=== PATIENT | female | born 1975 | race Caucasian/White ===

== ENCOUNTER → 2017-10-31 | Outpatient (CLI) | payer OTHER ==
[~2017-10-31] MED LIST: CARB-136 EACH EAR
== END | disposition home or self-care (01) ==
LOC: CFH 11:28
PROVIDERS: ATTEND Family Medicine
DX: M15.9 Polyosteoarthritis, unspecified (principal)

== ENCOUNTER → 2019-12-18 | Outpatient (CLI) | payer OTHER ==
[~2019-12-18] MED LIST changes: +DICL75TA3 PO; +FLUO20DR3 EACHEYE; +GABA100C PO; +HYDR473S47 PO
[2019-12-18 09:59] LABS: BASOPHILS % (AUTO) 1 % (0-1); EOSINOPHILS % (AUTO) 3 % (1-7); LYMPHOCYTES % (AUTO) 28 % (22-44); MEAN CORPUSCULAR HEMOGLOBIN 30.7 pg (27.0-34.8); MEAN CORPUSCULAR HGB CONC 33.2 g/dL (32.4-35.8); MEAN PLATELET VOLUME 8.7 fL (7.4-10.4); MONOCYTES % (AUTO) 10 % (2-9); NEUTROPHILS % (AUTO) 58 % (42-75); PLATELET COUNT 300 x10^3/uL (130-400); RED BLOOD COUNT 5.12 x10^6/uL (3.82-5.3); RED CELL DISTRIBUTION WIDTH 13.2 % (9.6-15.2)
[2019-12-18 10:02] LABS: ALBUMIN 4.1 g/dL (3.4-5.0); ANION GAP 4 mmol/L (5-15); CALCIUM 9.9 mg/dL (8.5-10.1); CHLORIDE 106 mmol/L (98-107)
[2019-12-18 10:05] LABS: MD NO
[2019-12-18 10:30] LABS: % IRON SATURATION 26 % (20-55); ALANINE AMINOTRANSFERASE 29 U/L (12-78); ALKALINE PHOSPHATASE 86 U/L (45-117); BILIRUBIN,TOTAL 0.6 mg/dL (0.2-1.0); CHOL/HDL RATIO 3.9; CHOLESTEROL, TOTAL 204 mg/dL (140-239); CREATININE 0.92 mg/dL (0.55-1.02); HDL CHOL % 25 % (28-40); HDL CHOLESTEROL (DIRECT) 52 mg/dL (40-60); IRON LEVEL 77 mcg/dL (50-170); LDL CHOLESTEROL,CALCULATED 132 mg/dL (54-169); LDL/HDL RATIO 2.5 (0.5-3.0); PREALBUMIN 28.8 mg/dL (20.0-40.0); TOTAL IRON BINDING CAPACITY 294 mcg/dL (250-450); TRANSFERRIN 225 mg/dL (200-360); TRIGLYCERIDES 98 mg/dL (50-200); VLDL CHOLESTEROL 20 mg/dL (0-25)
== END | disposition home or self-care (01) ==
LOC: STAR 08:26
PROVIDERS: ATTEND Thoracic Surgery (Cardiothoracic Vascular Surgery)
DX: Z01.812 Encounter for preprocedural laboratory examination (principal); Z20.828 Contact with and (suspected) exposure to other viral communicable diseases; R91.8 Other nonspecific abnormal finding of lung field; J84.10 Pulmonary fibrosis, unspecified; R94.31 Abnormal electrocardiogram [ECG] [EKG]
CPT/HCPCS: 36415; 71046; 80053; 80061; 82306; 82607; 82728; 82746; 83540; 83550; 83970; 84134; 84425; 84466; 85025; 87635; 93005

== ENCOUNTER 2019-12-23 12:24 | Inpatient (IN) | payer OTHER ==
[~2019-12-23] VITALS: Ht 160 cm; Wt 115.6 kg
[~2019-12-23 12:24] MED LIST changes: -HYDR473S47 PO
[2019-12-23] MEDS ORDERED: MIDAZOLAM 1 MG/ML, 2ML ONE (12:33)
[2019-12-23] MEDS ORDERED: FENTANYL PF 250 MCG/5ML ONE (12:33)
[2019-12-23] MEDS ORDERED: ONDANSETRON 2MG/ML, 2ML ONE (12:37)
[2019-12-23] MEDS ORDERED: ROCURONIUM 10MG/ML,5ML ONE (12:37)
[2019-12-23] MEDS ORDERED: PROPOFOL 10 MG/ML, 20ML ONE (12:37)
[2019-12-23] MEDS ORDERED: DEXAMETHASONE 4 MG/ML, 1ML ONE (12:37)
[2019-12-23] MEDS ORDERED: GLYCOPYRROLATE 0.2MG/1ML, 5ML ONE (12:37)
[2019-12-23] MEDS ORDERED: NEOSTIGMINE 1 MG/ML, 10ML ONE (12:37)
[2019-12-23] MEDS ORDERED: CEFAZOLIN 1,000 MG ONE (12:37)
[2019-12-23] MEDS ORDERED: EPINEPHRINE 1 MG/ML, 1ML ONE (12:54)
[2019-12-23] MEDS ORDERED: BUPIVACAINE/PF 0.5% ONE (12:54)
[2019-12-23] MEDS ORDERED: CHLORHEXIDINE 15 ML UDC MM ONE (13:03)
[2019-12-23] MEDS ORDERED: LACTATED RINGERS 1,000 ML IV ONE (13:03)
[2019-12-23] MEDS ORDERED: CHLORHEXIDINE 15 ML UDC ONE (13:05)
[2019-12-23] MEDS ORDERED: SCOPOLAMINE 1MG PATCH TD ONE ×2 (13:13→13:30)
[2019-12-23] MEDS ORDERED: PROMETHAZINE 25 MG/ML, 1ML IVPush PRN (13:30)
[2019-12-23] MEDS ORDERED: LABETALOL 5MG/ML, 20ML IV PRN (13:30)
[2019-12-23] MEDS ORDERED: MEPERIDINE/PF 25MG/0.5ML IVPush PRN (13:30)
[2019-12-23] MEDS ORDERED: ACETAMINOPHEN 325 MG TABLET PO PRN (13:30)
[2019-12-23] MEDS ORDERED: morphine SULFATE 10 MG/ML, 1ML IVPush PRN (13:30)
[2019-12-23] MEDS ORDERED: hydrALAzine 20 MG/ML, 1ML IV PRN (13:30)
[2019-12-23] MEDS ORDERED: HYDROmorphone 1 MG/ML, 1ML INJ IVPush PRN (13:30)
[2019-12-23] MEDS ORDERED: HALOPERIDOL 5 MG/ML IV PRN (13:30)
[2019-12-23] MEDS ORDERED: OXYcodone 5 MG/5 ML ORAL.SOL UDC PO PRN (13:30)
[2019-12-23] MEDS ORDERED: BUPIVACAINE/PF-EPI 0.5% 1:200K INFIL ONE (13:40)
[2019-12-23] MEDS ORDERED: FENTANYL PF 100 MCG/2ML ONE (14:28)
[2019-12-23] MEDS ORDERED: OXYcodone 5 MG/5 ML ORAL.SOL UDC ONE (14:28)
[2019-12-23] MEDS ORDERED: LORazepam 2 MG/ML, 1ML IV PRN (14:30)
[2019-12-23] MEDS ORDERED: PROMETHAZINE 12.5 MG SUPP PR PRN (14:30)
[2019-12-23] MEDS: FENTANYL PF 100 MCG/2ML IV PRN ×3 (14:30→14:45)
[2019-12-23] MEDS ORDERED: DIPHENHYDRAMINE 50 MG/ML, 1ML IV PRN (14:30)
[2019-12-23] MEDS ORDERED: ENALAPRILAT 1.25 MG/ML, 2ML IV PRN (14:30)
[2019-12-23] MEDS ORDERED: PHENOL THROAT SPRAY BOTTLE MM PRN (14:30)
[2019-12-23] MEDS ORDERED: ACETAMINOPHEN 100 ML IVPB PRN (14:30)
[2019-12-23] MEDS ORDERED: PROMETHAZINE 25 MG/ML, 1ML IM PRN (14:30)
[2019-12-23] MEDS ORDERED: hydrALAzine 20 MG/ML, 1ML IVPush PRN (14:30)
[2019-12-23] MEDS ORDERED: MEPERIDINE/PF 25MG/ML,1ML ONE (15:10)
[2019-12-23] MEDS ORDERED: PROMETHAZINE 25 MG/ML, 1ML ONE (15:10)
[2019-12-23] MEDS ORDERED: ACETAMINOPHEN 100 ML IVPB ONE (15:30)
[2019-12-23] MEDS ORDERED: METHOCARBAMOL 1,000 MG in DEXTROSE 5% 100 ML IV ONE (15:30)
[2019-12-23] MEDS: LACTATED RINGERS 1,000 ML IV SCH ×3 (16:38→23:37)
[2019-12-23] MEDS: morphine SULFATE 10 MG/ML, 1ML IVPush PRN ×2 (16:42→17:59)
[2019-12-23] MEDS: ONDANSETRON 2MG/ML, 2ML IVPush PRN (16:42)
[2019-12-23] MEDS: KETOROLAC 30 MG/1 ML IVPush PRN (20:18)
[2019-12-23] MEDS: FAMOTIDINE 20 MG/2 ML IVPush SCH (20:18)
[2019-12-23 20:30] VITALS: BP 110/51
[2019-12-24 00:35] VITALS: BP 113/63
[2019-12-24] MEDS ORDERED: LACTATED RINGERS 1,000 ML IV SCH (03:30)
[2019-12-24 04:58] VITALS: BP 131/71
[2019-12-24 05:30] LABS: ALBUMIN 3.3 g/dL (3.4-5.0); ANION GAP 6 mmol/L (5-15); CALCIUM 8.9 mg/dL (8.5-10.1); CHLORIDE 110 mmol/L (98-107)
[2019-12-24 05:31] LABS: BASOPHILS % (AUTO) 0 % (0-1); EOSINOPHILS % (AUTO) 0 % (1-7); LYMPHOCYTES % (AUTO) 13 % (22-44); MEAN CORPUSCULAR HEMOGLOBIN 30.9 pg (27.0-34.8); MEAN PLATELET VOLUME 8.7 fL (7.4-10.4); MONOCYTES % (AUTO) 6 % (2-9); NEUTROPHILS % (AUTO) 81 % (42-75); PLATELET COUNT 282 x10^3/uL (130-400); RED BLOOD COUNT 4.66 x10^6/uL (3.82-5.3); RED CELL DISTRIBUTION WIDTH 13.2 % (9.6-15.2)
[2019-12-24 05:33] LABS: CREATININE 0.74 mg/dL (0.55-1.02)
[2019-12-24] MEDS: HYDROcodone/APAP 7.5-325MG/15ML UDC PO PRN ×2 (05:40→09:16)
[2019-12-24 05:42] LABS: MD NO
[2019-12-24 07:33] VITALS: BP 115/62
[2019-12-24] MEDS ORDERED: ENOXAPARIN 40 MG/0.4 ML SQ SCH (09:00)
[2019-12-24] MEDS: FAMOTIDINE 20 MG/2 ML IVPush SCH (09:15)
[2019-12-24] MEDS: KETOROLAC 30 MG/1 ML IVPush PRN (09:15)
[2019-12-24] MEDS: ONDANSETRON 2MG/ML, 2ML IVPush PRN (09:24)
[2019-12-24] MEDS ORDERED: HYDR473S47 PO (10:43)
== END 2019-12-24 11:10 | disposition home or self-care (01) | DRG 621 ==
LOC: ORIP 12:24 → 4NE 16:21 → DCLOUNGE 12-24 11:01
PROVIDERS: ADMIT Thoracic Surgery (Cardiothoracic Vascular Surgery); ATTEND Thoracic Surgery (Cardiothoracic Vascular Surgery)
PROC: 0DB64Z3 Excision of Stomach, Percutaneous Endoscopic Approach, Vertical (ICD-10-PCS; principal; 2019-12-23 14:00)
DX: E66.01 Morbid (severe) obesity due to excess calories (principal); G47.30 Sleep apnea, unspecified; G89.29 Other chronic pain; M54.9 Dorsalgia, unspecified; K21.9 Gastro-esophageal reflux disease without esophagitis; Z68.42 Body mass index [BMI] 45.0-49.9, adult
CPT/HCPCS: 36415; S0020; 80048; 82040; 85025; G0378; J0131; J0171; J0690; J1100; J1650; J1885; J2175; J2250; J2405; J2550; J2704; J2710; J3010; J2270; J2800; J7120